=== PATIENT | male | born 1955 | race Caucasian/White ===

== ENCOUNTER 2023-03-20 08:48 | Outpatient (CLI) | payer MEDICARE ==
--- NOTE | 2023-03-20 10:15 | XRAY Report ---
PROCEDURE: Foot 3 View LT INDICATIONS: SPRAIN OF LEFT FOOT TECHNIQUE: 3 views of the foot were acquired. COMPARISON: None. FINDINGS: Bones: No acute fractures or dislocations. No suspicious bony lesions. 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 Soft tissues: No suspicious soft tissue calcifications or masses. IMPRESSION: No acute bony abnormality. 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 Reviewed by: Brian Kennedy on 03/20/2023 10:14 AM PDT Approved by: Brian Kennedy on 03/20/2023 10:14 AM PDT Station ID: [id number]
== END 2023-03-20 23:59 | disposition home or self-care (01) ==
LOC: DI.S 08:48
PROVIDERS: ATTEND Physician Assistant
DX: S92.352A Displaced fracture of fifth metatarsal bone, left foot, initial encounter for closed fracture (principal)

== ENCOUNTER 2023-03-21 08:00 | Outpatient (CLI) | payer MEDICARE ==
--- NOTE | 2023-03-21 16:48 | XRAY Report ---
PROCEDURE: Ankle 3 View LT INDICATIONS: LEFT ANKLE PAIN TECHNIQUE: 3 views of the ankle were acquired. COMPARISON: None. FINDINGS: Bones: No fractures or dislocations. Ankle mortise is normally aligned. No suspicious bony lesions . Soft tissues: No tibiotalar joint effusion. Achilles tendon appears normal. IMPRESSION: No acute fracture. No osseous lesion. If symptoms and/or clinical suspicion for pathology continue, f urther assessment with repeat plain films, or advanced imaging (e.g., CT, MRI, or bone scan) is recom mended for further assessment. Reviewed by: Napoleon Storm MD on 03/21/2023 4:47 PM PDT Approved by: Napoleon Storm MD on 03/21/2023 4:47 PM PDT Station ID: [id number]
== END 2023-03-21 23:59 | disposition home or self-care (01) ==
LOC: DI.WOS 08:00
PROVIDERS: ATTEND Orthopaedic Surgery
DX: S99.912A Unspecified injury of left ankle, initial encounter (principal)

== ENCOUNTER 2023-05-06 17:19 | Emergency (ER) | payer MEDICARE ==
--- NOTE | 2023-05-06 17:37 | ED Physician Documentation ---
PD HPI BACK PAIN - Stated complaint Stated Complaint: L LEG PX - Chief complaint Chief Complaint: Back Pain - History obtained from History obtained from: Patient - History of Present Illness Timing - onset: How many days ago (4-5) Timing - duration: Days (4-5) Timing - details: Gradual onset, Still present, Waxing and waning Location: Lower, Left (pain mostly at the SI arera left side and not as much ceentral back.) Quality: Pain, Spasm, Aching Associated symptoms: Numbness (down left lateral lower leg to dorsal foot and great toe.). No: Fever, Weakness Improves with: No: Rest Worsened by: Lifting (He had been doing some work around the house which included lifting and bending. He did not really notice pain at that time but onset the next day of the left sacroiliac area pain radiating down the left leg with some numbness intermittently in the anterolateral lower leg/ foot/great toe.), Twisting. No: Movement Contributing factors: Lifting. No: Trauma (no impact nor forceful injury.) Similar symptoms before: Diagnosis (He has had chronic back pain with previous L to an L3 microlaminectomy's. Recently intermittent back pain and is on a pain contract with medications by his primary care. He is seeing that person tomorrow. Pain intractable now.) Recently seen: Not recently seen Review of Systems Constitutional: denies: Fever, Chills Cardiac: denies: Chest pain / pressure Respiratory: denies: Dyspnea Neurologic: reports: Numbness. denies: Generalized weakness, Focal weakness, Near syncope PD PAST MEDICAL HISTORY - Past Medical History Cardiovascular: None Respiratory: None Musculoskeletal: Chronic back pain - Present Medications Home Medications: Ambulatory Orders Medication Instructions Recorded Confirmed Lidocaine 1 each TP BID PRN #10 patch 05/06/23 dexAMETHasone [Decadron] 4 mg PO DAILY #7 tablet 05/06/23 tiZANidine [Zanaflex] 4 mg PO Q8H PRN #25 tablet 05/06/23 - Allergies Allergies/Adverse Reactions: Allergies Allergy/AdvReac Type Severity Reaction Status Date / Time No Known Drug Allergies Allergy Verified 05/06/23 17:30 PD ED PE NORMAL - Vitals Vital signs reviewed: Yes - General General: Alert and oriented X 3, Well developed/nourished, Other (appears in pain. Moving around continually to find comfortable position. Not guarded with movement. Cross legged position does elicit more pain. ) - Cardiac Cardiac: RRR, No murmur - Respiratory Respiratory: Clear bilaterally - Abdomen Abdomen: Soft, Non tender - Back Back: No CVA TTP, No spinal TTP, Other (he is mainly tender at left SI area. No redness, rash nor sores. ) - Derm Derm: Normal color, Warm and dry, No rash - Extremities Extremities: No edema, No calf tenderness / cord - Neuro Neuro: Alert and oriented X 3, No motor deficit, Normal speech, Other (decrased sensation lateral lower leg to top of foot and at great toe c/w L5 radiculitis. ) Eye Opening: Spontaneous Motor: Obeys Commands Verbal: Oriented GCS Score: 15 Results - Vitals Vitals: Vital Signs - 24 hr 05/06/23 05/06/23 05/06/23 17:29 18:35 19:11 Temperature 37.2 C Heart Rate 76 93 88 Respiratory 20 19 18 Rate Blood Pressure 135/79 H 127/92 H 148/108 H O2 Saturation 99 99 98 Oxygen O2 Source Room air PD Medical Decision Making - ED course Complexity details: reviewed results (The patient did not have red flags per se to warrant acute imaging.), considered differential (The patient with onset of left low back pain after lifting and bending the day prior. Has had back problems in the past with discectomies upper lumbar. No known ill 5 problems previously. Having pain more to the left sacroiliac area with a lot of restless movement suggesting more sacroiliitis.), d/w patient ED course: He was in significant distress and pain and I felt he was likely to need repeat doses and certainly combination of medicines so I had nursing started IV in order to be able to give a combination of Dilaudid 1 mg, Toradol 15 mg, Decadron 10 mg and diazepam 2.5 mg for a multifaceted approach to the process. Reassessment of the patient after these was moderately improved but still hurting and he was given a repeat dose of the Dilaudid IV. He states he does not have any pain medicines at home right now as his usual prescription is as needed and not given enough for daily dosing per se. He has an appoint with his primary care tomorrow who with whom he does have a pain contract. In addition to the IV medications here, we can send him home with a prepack of Percocet whic h would be 4 tablets to provide a couple of doses overnight and into getting his provider tomorrow. I would suggest adding medications of anti-inflammatory such as Decadron and tizanidine muscle relaxant. I can send prescriptions for these but defer any pain medicine to his primary care tomorrow. Departure - Departure Disposition: Home, Self Care Clinical Impression: Lumbosacral radiculopathy at L5, Sacroiliitis Condition: Stable Record reviewed to determine appropriate education?: Yes Instructions: ED Sacroiliitis, ED Sciatica Follow-Up: Сергей Patel MD [Primary Care Provider] - Prescriptions: dexAMETHasone [Decadron] 4 mg PO DAILY #7 tablet Lidocaine 1 each TP BID PRN #10 patch PRN Reason: Pain 1-4 tiZANidine [Zanaflex] 4 mg PO Q8H PRN #25 tablet PRN Reason: Spasms Comments: You received hydromorphone, Diazepam, ketorolac while you were in the emergency department. You can try topical treatments such as lidocaine patch to the sacroiliac area and also massage heat or even potentially chiropractic. I think you are having more inflammation through the sacroiliac joint and irritation of the nerves they are though it still possible that it could be coming centrally from the spine/discs. Similar treatment of anti-inflammatories and muscle relaxants and pain medicine though the exercises and stretching for sacroiliac area is a little bit different. I did write prescriptions for lidocaine patches, dexamethasone steroid anti- inflammatory and tizanidine muscle relaxant and sent them to your preferred pharmacy. Given they have a pain contract with your primary care and seeing him tomorrow, I deferred any prescriptions for those to your provider. Hopefully you are feeling improved enough this evening with the medications given. I did send you home with for pain pill tablets for tonight for that amount anyway. Discharge Date/Time: 05/06/23 19:54
[2023-05-06] MEDS ORDERED: KETOROLAC 15 MG/ML VIAL IVP STA (17:56)
[2023-05-06] MEDS ORDERED: HYDROmorphone 1 MG/ML CARPUJECT IVP STA ×2 (17:56→18:45)
[2023-05-06] MEDS ORDERED: DEXAMETHASONE 10 MG/ML VIAL IVP STA (17:56)
[2023-05-06] MEDS ORDERED: diazePAM INJ 5 MG/ML SYRINGE IVP STA (17:56)
--- OUTSIDE RECORDS SUMMARY | 2023-05-06 18:28 | EXTERNAL MEDICAL SUMMARY RPT | Continuity of Care Document ---
Author Name Unknown Address [address] [place] [address] Phone Organization [facility] Address [address] [place] [address] Phone Care Team Providers Care Manager Meeting Name Role Phone Unavailable Unavailable Unavailable Galilea Rojas Unavailable Unavailabl josephine Pimentel Patient Registrar Ii, Amelia Unavailable Unavailable Lizeth Cabrera Katia Unavailable Unavaila lesly Ellis,Lizeth Katia Unavailable Unavaila lesly Greene Md, Diego Unavailable Unavailable Coby Gary, Micheal Unavailable Unavailable Margarito Patient Registrar Ii, Amelia Unavailable Unavailable Jeronimo Patient Registrar, Alessandra Unavailable Unavailable Margarito Patient Registrar Ii, Amelia Unavailable Unavailable Medications date description facility 2023-03-20 00:00 [facility]codone [facility] 2023-03-20 00:00 [facility]codone [facility] 2023-03-21 00:00 [facility]codone [facility] 2023-03-21 00:00 [facility]ycodone [facility] 2023-03-22 00:00 [facility]ycodone [facility] 2023-03-22 00:00 [facility]ycodone [facility] 2023-03-27 00:00 oxycodone [facility] 2023-03-29 00:00 [facility]ycodone [facility] 2023-03-29 00:00 [facility]ycodone [facility] 2023-03-29 00:00 [facility]ycodone [facility] 2023-03-20 00:00 [facility]codone [facility] 2023-03-20 00[facility]00 [facility]ycodone [facility] 2023-03-21 00:00 oxycodone [facility] 2023-03-21 00:00 oxycodone [facility] 2023-03-22 00:00 oxycodone [facility] 2023-03-22 00:00 oxycodone [facility] 2023-03-27 00:00 oxycodone [facility] 2023-03-29 00:00 oxycodone [facility] 2023-03-29 00:00 oxycodone [facility] 2023-03-29 00:00 oxycodone [facility] 2023-03-20 00:00 tamsulosin [facility] 2023-03-20 00:00 tamsulosin [facility] 2023-03-21 00:00 tamsulosin [facility] 2023-03-21 00:00 tamsulosin [facility] 2023-03-22 00:00 tamsulosin [facility] 2023-03-22 00:00 tamsulosin [facility] 2023-03-27 00:00 tamsulosin [facility] 2023-03-29 00:00 tamsulosin [facility] 2023-03-29 00:00 tamsulosin [facility] 2023-03-29 00:00 tamsulosin [facility] 2023-03-20 00:00 oxycodone [facility] 2023-03-20 00:00 [facility]ycodone [facility] 2023-03-21 00:00 oxycodone [facility] 2023-03-21 00:00 oxycodone [facility] 2023-03-22 00:00 oxycodone [facility] 2023-03-22 00:00 oxycodone [facility] 2023-03-27 00:00 oxycodone [facility] 2023-03-29 00:00 oxycodone [facility] 2023-03-29 00:00 oxycodone [facility] 2023-03-29 00:00 oxycodone [facility] 2023-03-20 00:00 tamsulosin [facility] 2023-03-20 00:00 tamsulosin [facility] 2023-03-21 00:00 tamsulosin [facility] 2023-03-21 00:00 tamsulosin [facility] 2023-03-22 00:00 tamsulosin [facility] 2023-03-22 00:00 tamsulosin [facility] 2023-03-27 00:00 tamsulosin [facility] 2023-03-29 00:00 tamsulosin [facility] 2023-03-29 00:00 tamsulosin [facility] 2023-03-29 00:00 tamsulosin [facility] 2023-03-20 00:00 tamsulosin [facility] 2023-03-20 00:00 tamsulosin [facility] 2023-03-21 00:00 tamsulosin [facility] 2023-03-21 00:00 tamsulosin [facility] 2023-03-22 00:00 tamsulosin [facility] 2023-03-22 00:00 tamsulosin [facility] 2023-03-27 00:00 tamsulosin [facility] 2023-03-29 00:00 tamsulosin [facility] 2023-03-29 00:00 tamsulosin [facility] 2023-03-29 00:00 tamsulosin [facility] 2023-03-20 00:00 oxycodone [facility] 2023-03-20 00:00 oxycodone [facility] 2023-03-21 00:00 oxycodone [facility] 2023-03-21 00:00 oxycodone [facility] 2023-03-22 00:00 oxycodone [facility] 2023-03-22 00:00 oxycodone [facility] 2023-03-27 00:00 oxycodone [facility] 2023-03-29 00:00 oxycodone [facility] 2023-03-29 00:00 oxycodone [facility] 2023-03-29 00:00 oxycodone [facility] 2023-03-20 00:00 tamsulosin [facility] 2023-03-20 00:00 tamsulosin [facility] 2023-03-21 00:00 tamsulosin [facility] 2023-03-21 00:00 tamsulosin [facility] 2023-03-22 00:00 tamsulosin [facility] 2023-03-22 00:00 tamsulosin [facility] 2023-03-27 00:00 tamsulosin [facility] 2023-03-29 00:00 tamsulosin [facility] 2023-03-29 00:00 tamsulosin [facility] 2023-03-29 00:00 tamsulosin [facility] Problems date description facility 2023-03-20 00:00 Sprain of left foot [facility] 2023-03-20 00:00 Sprain of left foot [facility] 2023-03-20 00:00 Sprain of left foot [facility] 2023-03-20 00:00 Sprain of left foot [facility] 2023-03-20 00:00 Sprain of left foot [facility] 2023-03-20 00:00 Sprain of left foot [facility] 2023-03-20 00:00 Sprain of left foot [facility] 2023-03-20 00:00 Sprain of left foot [facility] 2023-03-20 00:00 No current problems or disability - unknown [facility] 2023-03-20 00:00 Nonunion of fracture [facility] 2023-03-20 00:00 Nonunion of fracture [facility] 2023-03-20 00:00 Nonunion of fracture [facility] 2023-03-20 00:00 Nonunion of fracture [facility] 2023-03-20 00:00 Nonunion of fracture [facility] 2023-03-20 00:00 Nonunion of fracture [facility] 2023-03-20 00:00 Nonunion of fracture [facility] 2023-03-20 00:00 Nonunion of fracture [facility] 2023-03-20 00:00 Unspecified sprain o f left foot, initial encounter [facility] 2023-03-20 00:00 Unspecified sprain o f left foot, initial encounter [facility] 2023-03-20 00:00 Unspecified sprain o f left foot, initial encounter [facility] 2023-03-20 00:00 Unspecified sprain o f left foot, initial encounter [facility] 2023-03-20 00:00 Unspecified sprain o f left foot, initial encounter [facility] 2023-03-20 00:00 Unspecified sprain o f left foot, initial encounter [facility] 2023-03-20 00:00 Unspecified sprain o f left foot, initial encounter [facility] 2023-03-20 00:00 Unspecified sprain o f left foot, initial encounter [facility] 2023-03-20 00:00 Other injury of unsp ecified body region, initial encounter [facility] 2023-03-20 00:00 Other injury of unsp ecified body region, initial encounter [facility] 2023-03-20 00:00 Other injury of unsp ecified body region, initial encounter [facility] 2023-03-20 00:00 Other injury of unsp ecified body region, initial encounter [facility] 2023-03-20 00:00 Other injury of unsp ecified body region, initial encounter [facility] 2023-03-20 00:00 Other injury of unsp ecified body region, initial encounter [facility] 2023-03-20 00:00 Other injury of unsp ecified body region, initial encounter [facility] 2023-03-20 00:00 Other injury of unsp ecified body region, initial encounter [facility] 2023-03-21 00:00 Sprain of calcaneofibular ligam ent [facility] 2023-03-21 00:00 Sprain of calcaneofibular ligam ent [facility] 2023-03-21 00:00 Sprain of calcaneofibular ligam ent [facility] 2023-03-21 00:00 Sprain of calcaneofibular ligam ent [facility] 2023-03-21 00:00 Sprain of calcaneofibular ligam ent [facility] 2023-03-21 00:00 Sprain of calcaneofibular ligam ent [facility] 2023-03-21 00:00 Sprain of calcaneofibular ligam ent [facility] 2023-03-21 00:00 Calcaneofibular (lig ament) ankle sprain [facility] 2023-03-21 00:00 Calcaneofibular (lig ament) ankle sprain [facility] 2023-03-21 00:00 Calcaneofibular (lig ament) ankle sprain [facility] 2023-03-21 00:00 Calcaneofibular (lig ament) ankle sprain [facility] 2023-03-21 00:00 Calcaneofibular (lig ament) ankle sprain [facility] 2023-03-21 00:00 Calcaneofibular (lig ament) ankle sprain [facility] 2023-03-21 00:00 Calcaneofibular (lig ament) ankle sprain [facility] 2023-03-21 00:00 Sprain of calcaneofi bular ligament of left ankle, initial encounter [facility] 2023-03-21 00:00 Sprain of calcaneofi bular ligament of left ankle, initial encounter [facility] 2023-03-21 00:00 Sprain of calcaneofi bular ligament of left ankle, initial encounter [facility] 2023-03-21 00:00 Sprain of calcaneofi bular ligament of left ankle, initial encounter [facility] 2023-03-21 00:00 Sprain of calcaneofi bular ligament of left ankle, initial encounter [facility] 2023-03-21 00:00 Sprain of calcaneofi bular ligament of left ankle, initial encounter [facility] 2023-03-21 00:00 Sprain of calcaneofi bular ligament of left ankle, initial encounter [facility] Procedures date description facility 2023-03-20 00:00 Visit Code Hold [facility] 2023-03-20 00:00 Visit Code Hold [facility] 2023-03-20 00:00 Visit Code Hold [facility] 2023-03-20 00:00 Visit Code Hold [facility] 2023-03-20 00:00 Visit Code Hold [facility] 2023-03-20 00:00 Visit Code Hold [facility] 2023-03-20 00:00 Visit Code Hold [facility] 2023-03-20 00:00 Visit Code Hold [facility] Social History date description facility 2023-03-20 00:00 Unknown if ever smoked [facility] 2023-03-20 00:00 Current every day smoker [facility] 2023-03-20 00:00 Current every day smoker [facility] 2023-03-20 00:00 Current every day smoker [facility] 2023-03-20 00:00 Current every day smoker [facility] 2023-03-20 00:00 Current every day smoker [facility] 2023-03-20 00:00 Current every day smoker [facility] 2023-03-20 00:00 Current every day smoker [facility] 2023-03-20 00:00 Current every day smoker [facility] Vital Signs date measurement value units 2023-03-20 00:00 BMI 26.34 kg/m2 2023-03-20 00:00 BP_diastolic 83 mmHg 2023-03-20 00:00 BP_systolic 140 mmHg 2023-03-20 00:00 heart_rate 65 /min 2023-03-20 00:00 height_metric 185.42 cm 2023-03-20 00:00 height_standard 73 in 2023-03-20 00:00 respiration_rate 17 /min 2023-03-20 00:00 temperature_metric 36.28 C 2023-03-20 00:00 temperature_standard 97.3 F 2023-03-20 00:00 weight_metric 90.22 kg 2023-03-20 00:00 weight_standard 198.9 lb
[2023-05-06] MEDS ORDERED: oxyCODONE/ACET 5/325 Prepack 4 PO STA (18:46)
[2023-05-06 19:13] VITALS: BP 148/108; O2SAT 98
== END 2023-05-06 19:54 | disposition home or self-care (01) ==
LOC: ED 17:19
DX: M46.1 Sacroiliitis, not elsewhere classified (principal); M54.16 Radiculopathy, lumbar region
CPT/HCPCS: 96374; 96375; 96376; 99283; J1170